=== PATIENT | female | born 1945 | race Caucasian/White ===

== ENCOUNTER → 2017-09-13 01:17 | Outpatient (CLI) | payer OTHER, SELFPAY ==
[2017-09-13 10:19] LABS: CREATININE 1.33 mg/dL (0.55-1.02); Estimated GFR 39.33 (mL/min/1.73m2)
--- NOTE | 2017-09-13 11:34 | DI.RPTCT_ITS ---
SYMPTOM/DIAGNOSIS: RUQ BD PAIN, R10.11 CT ABDOMEN AND PELVIS: CT scan of the abdomen and pelvis was performed without intravenous contrast material. Oral contrast was administered. There are no priors for comparison. The lung bases are clear Lack of IV contrast does limit evaluation of the abdominal organs. The unenhanced liver, spleen, pancreas and adrenal glands are unremarkable. The patient is status post cholecystectomy. No biliary ductal dilatation is present. The kidneys show no evidence of nephrolithiasis or hydronephrosis. The urinary bladder is intact. The patient appears to be status post hysterectomy. There is atherosclerosis of the abdominal aorta but no aneurysmal dilatation is seen. No significant abdominal or pelvic adenopathy, ascites or pneumoperitoneum is present. The bowel shows no evidence of obstruction or inflammation. There is a normal retrocecal appendix present. Incidental note is made of a small duodenal diverticulum adjacent to the pancreatic head. Degenerative changes are seen in the spine. Note is made of a small hiatal hernia. IMPRESSION: No evidence of an acute abdomen. 2. Incidental findings in the abdomen and pelvis as described above.
== END ==
PROVIDERS: PCP Nurse Practitioner Family; Visit Provider Physician Assistant Medical
DX: R10.11 Right upper quadrant pain (principal); K44.9 Diaphragmatic hernia without obstruction or gangrene; K57.10 Diverticulosis of small intestine without perforation or abscess without bleeding; Z90.49 Acquired absence of other specified parts of digestive tract; Z13.89 Encounter for screening for other disorder
CPT/HCPCS: 36415; 74176; 82565

== ENCOUNTER → 2017-09-22 12:10 | Outpatient (REF) | payer OTHER, SELFPAY ==
[2017-09-22 21:03] LABS: BUN 18 mg/dL (7-18); CREATININE 1.18 mg/dL (0.55-1.02); Calcium 9.2 mg/dL (8.5-10.1); Chloride 98 mmol/L (98-107); Estimated GFR 45.15 (mL/min/1.73m2); Glucose 227 mg/dL (70-100); Potassium 3.8 mmol/L (3.5-5.1); Sodium 136 mmol/L (136-145)
== END ==
LOC: NCHCN 12:10
PROVIDERS: PCP Nurse Practitioner Family; Visit Provider Physician Assistant Medical
DX: I10 Essential (primary) hypertension (principal)
CPT/HCPCS: 80048

== ENCOUNTER 2017-10-13 21:22 | Emergency (ER) | payer OTHER, SELFPAY ==
[2017-10-13 21:27] VITALS: BP 180/79; PULSE 87; RESP 16; TEMP 36.4; O2SAT 97
--- NOTE | 2017-10-13 21:54 | DI.RAD_ITS ---
SYMPTOMS/DIAGNOSIS: FALL, LT MID FOOT PAIN AND LATERAL MALLEOLUS PAIN LEFT ANKLE: Heel spurs are seen. There is no evidence of fracture or ankle mortise widening. IMPRESSION: No acute abnormality. LEFT FOOT: No fracture or dislocation is seen. There are mild degenerative changes at the first MTP joint. Heel spurs are seen. IMPRESSION: No acute abnormality.
--- NOTE | 2017-10-13 23:22 | DI.VRAD_ITS ---
EXAM: XR Left Ankle Complete, 3 or More Views CLINICAL HISTORY: 72 years old, female; Signs and symptoms; Other: Fall, left mid foot pain and lateral mall pain TECHNIQUE: Frontal, lateral and oblique views of the left ankle. COMPARISON: No relevant prior studies available. FINDINGS: Bones/joints: Noninflamed enthesophyte seen within the region of the Achilles tendon.There is a noninflamed plantar enthesophyte. No evidence of fracture. No evidence dislocation. Soft tissues: Soft tissue swelling seen within the lateral greater than medial aspect of the distal left ankle proximal foot. IMPRESSION: Soft tissue swelling seen within the lateral greater than medial aspect of the distal left ankle proximal left foot. Dictated and Authenticated by: Lalo Dowling MD. Ordering:BRADEN ADHIKARI MD
--- NOTE | 2017-10-13 23:25 | DI.VRAD_ITS ---
EXAM: XR Left Foot Complete, 3 or More Views CLINICAL HISTORY: 72 years old, female; Signs and symptoms; Other: Fall, left mid foot pain TECHNIQUE: Frontal, lateral and oblique views of the left foot. COMPARISON: No relevant prior studies available. FINDINGS: Bones/joints: No evidence of fracture. No evidence dislocation. Bone mineralization is age-appropriate. The joint spaces are adequately preserved; no significant degenerative narrowing and no bony erosion seen. Soft tissues: There is lateral greater than medial soft tissue swelling of the proximal left foot. No radiopaque foreign body present. No radiopaque foreign body identified. IMPRESSION: No acute osseous abnormality. Soft tissue swelling only. Dictated and Authenticated by: Lalo Dowling MD. Ordering:BRADEN ADHIKARI MD
[2017-10-14] MEDS: Acetaminophen 500 MG TAB 1000 MG PO (00:15)
[2017-10-14] MEDS: Ibuprofen 800 MG TAB PO (00:16)
[2017-10-14 00:30] VITALS: BP 180/79; PULSE 87; RESP 16; TEMP 36.4; O2SAT 97
--- NOTE | 2017-10-14 03:14 | ED.GENADUL_ITS ---
Discharge Plan Discharge Details Chief Complaint: Orthopedic Clinical Impression: Sprain of foot, left Reason For Visit: left foot pain Primary Care Provider: Alanna Stratton ED Provider: Ezequiel Salazar Disposition Patient Disposition: HOME Condition: Good Home Meds and New Rx's Prescriptions: New acetaminophen [Mapap Extra Strength] 500 MG tablet 1,000 mg PO Q6H 5 Days Qty: 60 RF: 0 ibuprofen [Motrin IB] 200 MG tablet 600 mg PO Q6H 5 Days Qty: 30 RF: 0 No Action lisinopril 10 MG tablet 5 mg PO DAILY AM RF: 0 aspirin [Obinna Chewable Aspirin] 81 MG tablet,chewable 81 mg PO QAM RF: 0 fexofenadine [Krystle Allergy] 180 MG tablet RF: 0 levothyroxine 25 MCG tablet 25 mcg PO QAM RF: 0 hydrochlorothiazide 50 MG tablet 50 mg PO QAM RF: 0 vitamin D3-vitamin K2 [D3 + K2 DOTS] 1 EACH tablet,disintegrating RF: 0 meclizine [Antivert] 25 MG tablet 25 mg PO BID PRN PRNQty: 20 RF: 0 Discharge Instructions Instructions: RICE Therapy (ED), Swollen Joint (ED) Additional Instructions: Please take Tylenol and Motrin as directed. Please take the Motrin with food. Please follow-up with your primary care provider soon as possible for reassessment. Please continue to use ice as much as possible on your foot, keep it elevated, and keep it in the boot. If you notice any worsening of your symptoms, or any new symptoms such as vomiting, diarrhea, fever, chills, shortness of breath, chest pain, numbness, weakness, or fainting , please return immediately to the emergency department for reevaluation. Please follow up with your primary care provider as soon as possible for reassessment and reevaluation. As always, it was a pleasure participating in your medical care today. Medical Decision Making MDM Narrative Medical decision making narrative: This is a 72-year-old female who presents for evaluation of left ankle pain. She is walking down her stairs when she slipped on fluids secondary to the neighbor spilling it on the stairs. She twisted her left ankle and foot. She has been able to walk on it with a mild limp, and has been taking aspirin and using ice for this. It occurred earlier this evening. She presents today for further evaluation of the ankle and foot. Physical exam demonstrates tenderness over the midfoot, as well as mild tenderness in the lateral ankle. Patient refused any IM morphine, but did request Tylenol and Motrin. X-rays were performed and per virtual radiology there is no acute osseous abnormality, soft tissue swelling only for the left foot, as well as soft tissue swelling seen within the lateral greater the medial aspect of the distal left ankle proximal left foot. The patient was given a Aircast boot, and she tolerated this well with a cane. She did not want crutches. With a negative x-ray per virtual radiology and good tolerance of the pain with a walking boot and cane and feels she is safe for discharge home with close follow-up with her PCP. We discussed red flags which return as well as the importance of close follow-up and she understands. I have extensively reviewed the treatment plan and discharge instructions with the patient. I have addressed all patient concerns at this time. The patient was made aware of what symptoms to monitor for that would warrant a return to the emergency department. Discussed the plan with the patient, they demonstrate verbal understanding and agreement with our assessment and plan at this time. HPI - General Adult General Date/Time Provider Initiated Documentation: 10/13/17 21:54 . HPI Narrative: This is a 72-year-old female who presents for evaluation of left ankle pain. Patient states that she is walking down her stairs, and her neighbor got sewage all over steps. Because of this she slipped and she had a roll of her left foot/ankle. She applied ice, and took 3 aspirin at home. She was able to walk but did have a limp because of this. Pain is made worse with movement. She denies hearing any pop or crack. She denies any previous surgeries in the area. She denies any numbness, tingling, weakness. She denies any blood thinner use. She does take daily aspirin. She did not fall and hit her head. She denies any pain in her knee or hips. She denies any other complaints at this time. She denies any IV or illicit drug use. She denies any pertinent family history Related Data Home Medications Medication Instructions Recorded Confirmed aspirin [Obinna Chewable Aspirin] 81 mg PO QAM 07/27/16 10/13/17 fexofenadine [Krystle Allergy] 07/27/16 hydrochlorothiazide 50 mg PO QAM 07/27/16 10/13/17 levothyroxine 25 mcg PO QAM 07/27/16 10/13/17 lisinopril 5 mg PO DAILY AM 07/27/16 10/13/17 vitamin D3-vitamin K2 [D3 + K2 07/27/16 DOTS] Previous Rx's Medication Instructions Recorded meclizine [Antivert] 25 mg PO BID PRN PRN #20 tab 07/27/16 acetaminophen [Mapap Extra 1,000 mg PO Q6H 5 Days #60 tab 10/14/17 Strength] ibuprofen [Motrin Ib] 600 mg PO Q6H 5 Days #30 tab 10/14/17 Allergies Allergy/AdvReac Type Severity Reaction Status Date / Time erythromycin base Allergy Unknown Unverified 07/27/16 16:04 [Erythromycin Base] gluten AdvReac ABD PAIN-N Unverified 07/27/16 16:04 AND V SEAFOOD Allergy Intermediate Uncoded 07/27/16 16:04 General Stated Complaint: Orthopedic JONNY: 4 Review of Systems Review of Systems 10 point review of systems was performed, pertinent positives and negatives are noted in the history of present illness. [facility] Social History Smoking/Tobacco Use Status: Never Exam Narrative Exam Narrative: 1.Const: Well-nourished, Well-developed, appearing stated age 2.Eyes: PERRL, no conjunctival injection, and symmetrical lids. 3.ENT: Atraumatic external nose and ears. Moist MM. Neck: Symmetric, trachea midline, No thyromegaly. 4.CVS: +S1/S2, No murmurs or gallops. Peripheral pulses 2+ and equal in all extremities. Brisk capillary refill in all extremities. 5.RESP: Unlabored respiratory effort. Clear to auscultation bilaterally. No wheezes rales or rhonchi 6.GI: Soft, Nontender/Nondistended, No hepatosplenomegaly. No guarding or rebound. 7.MSK: Normocephalic/Atraumatic, Extremities w/o deformity. No cyanosis or clubbing, normal movement of the patient's hips, knees, back and upper extremities bilaterally. Patient's right lower extremity is normal. Left lower extremity demonstrates no significant swelling. There is mild reproducible tenderness over the midfoot. No joint laxity for the left ankle. Brisk capillary refill, normal dorsalis pedis pulse and posterior tibial pulse. Mild tenderness over the lateral malleoli of the left ankle. No other significant abnormality or deformity. 8.Skin: Warm, Dry. No rashes or lesions. 9.Neuro: lodging manager II-XII grossly intact. Sensation grossly intact, no focal neurologic deficits. 10.Psych: (AAO) x3. Appropriate mood and affect Course Vital Signs Temperature 36.4 C L 10/13/17 21: Pulse 87 10/13/17 21:27 Respiratory Rate 16 10/13/17 21:27 Blood Pressure 180/79 H 10/13/17 21:27 Pulse Oximetry 97 10/13/17 21:27 Temperature 36.4 C L 10/13/17 21:27 Pulse 87 10/13/17 21:27 Respiratory Rate 16 10/13/17 21:27 Blood Pressure 180/79 H 10/13/17 21:27 Pulse Oximetry 97 10/13/17 21:27
== END 2017-10-14 00:45 | disposition home or self-care (01) ==
LOC: ER 10-14 00:50
PROVIDERS: Emergency Provider Student in an Organized Health Care Education/Training Program; PCP Physician Assistant Medical
DX: S93.602A Unspecified sprain of left foot, initial encounter (principal); M25.572 Pain in left ankle and joints of left foot; W10.8XXA Fall (on) (from) other stairs and steps, initial encounter; I10 Essential (primary) hypertension
CPT/HCPCS: 29515; 96372; 99284; 73610; 73630; 99283; J2270; L4361

== ENCOUNTER 2017-11-17 08:59 | Outpatient (REF) | payer OTHER, SELFPAY ==
[2017-11-17 20:18] LABS: Anion Gap 9.4 mmol/L (3-11); BUN 23 mg/dL (7-18); CO2 27.6 mmol/L (21.0-32.0); CREATININE 1.04 mg/dL (0.55-1.02); Calcium 8.6 mg/dL (8.5-10.1); Chloride 103 mmol/L (98-107); Estimated GFR 52.24 (mL/min/1.73m2); Glucose 137 mg/dL (70-100); Potassium 4.6 mmol/L (3.5-5.1); Sodium 140 mmol/L (136-145)
== END 2017-11-17 09:19 ==
LOC: NCHCN 08:59
PROVIDERS: PCP Physician Assistant Medical; Visit Provider Physician Assistant Medical
DX: R94.4 Abnormal results of kidney function studies (principal); I10 Essential (primary) hypertension
CPT/HCPCS: 80048

== ENCOUNTER 2018-03-23 11:19 | Outpatient (REF) | payer OTHER, SELFPAY ==
[2018-03-23 20:13] LABS: Hemoglobin A1C 6.7 % (4.5-6.2)
[2018-03-23 20:15] LABS: Anion Gap 12.1 mmol/L (3-11); BUN 23 mg/dL (7-18); CO2 26.9 mmol/L (21.0-32.0); CREATININE 1.22 mg/dL (0.55-1.02); Calcium 9.2 mg/dL (8.5-10.1); Chloride 101 mmol/L (98-107); Cholesterol 212 mg/dL (50-200); Estimated GFR 43.45 (mL/min/1.73m2); Glucose 183 mg/dL (70-100); HDL Cholesterol 48 mg/dL (40-60); LDL CHOLESTEROL 139 mg/dL (<100); Potassium 4.2 mmol/L (3.5-5.1); Sodium 140 mmol/L (136-145); TSH (W/Ref FT4) 2.26 uIU/mL (0.358-3.74); Triglyceride 173 mg/dL (30-150)
== END 2018-03-23 11:39 ==
LOC: NCHCN 11:19
PROVIDERS: PCP Physician Assistant Medical; Visit Provider Nurse Practitioner Family
DX: E11.9 Type 2 diabetes mellitus without complications (principal); E03.9 Hypothyroidism, unspecified; I10 Essential (primary) hypertension
CPT/HCPCS: 80048; 80061; 83721; 83036; 84443

== ENCOUNTER 2018-04-25 15:31 | Outpatient (REF) | payer OTHER, SELFPAY ==
[2018-04-25 22:12] LABS: ALT 66 U/L (12-78); AST 31 U/L (15-37); Albumin 3.7 g/dL (3.4-5.0); Alkaline Phosphatase 80 U/L (46-116); Anion Gap 8.1 mmol/L (3-11); BUN 22 mg/dL (7-18); Bilirubin, Direct 0.12 mg/dL (0.00-0.20); Bilirubin, Total 0.4 mg/dL (0.2-1.0); CO2 27.9 mmol/L (21.0-32.0); CREATININE 1.13 mg/dL (0.55-1.02); Calcium 9.5 mg/dL (8.5-10.1); Chloride 100 mmol/L (98-107); Estimated GFR 47.47 (mL/min/1.73m2); Glucose 115 mg/dL (70-100); Potassium 4.2 mmol/L (3.5-5.1); Sodium 136 mmol/L (136-145); Total Protein 7.1 g/dL (6.4-8.2)
== END 2018-04-25 15:51 ==
LOC: NCHCN 15:31
PROVIDERS: PCP Physician Assistant Medical; Visit Provider Nurse Practitioner Family
DX: N18.3 Chronic kidney disease, stage 3 (moderate) (principal)
CPT/HCPCS: 80048; 80076

== ENCOUNTER 2019-01-12 16:33 | Outpatient (REF) | payer OTHER, SELFPAY | END 2019-01-12 16:53 | LOC: NCHCN 16:33 | PROVIDERS: PCP Physician Assistant Medical; Visit Provider Nurse Practitioner Family | DX: N89.8 Other specified noninflammatory disorders of vagina (principal) | CPT/HCPCS: 87480; 87510; 87660 ==

== ENCOUNTER 2019-01-17 01:14 | Outpatient (CLI) | payer OTHER, SELFPAY ==
--- NOTE | 2019-01-17 13:12 | DI.US_ITS ---
EXAM: US PELVIS TRANSVAGINAL CLINICAL HISTORY: BLOODY VAGINAL DISCHARGE, N89.8, H/O HYSTERECTOMY, 1 OVARY, RLQ TENDERNESS, ?LESIO N/INFECTION, VAGINAL SWAB PATHOLOGY COLLECTED TECHNIQUE: Ultrasound performed using standard protocol. COMPARISON: ABD PELVIS WO CONTRAST from 09/13/2017 FINDINGS: Transabdominal and transvaginal exams were performed. The transabdominal images are limited by patien t's body habitus and lack of bladder distention. Fluid is seen within the cervical canal. Patient is status post hysterectomy and right oophorectomy. The left ovary was not visualized. No free fluid is seen. The kidneys are unremarkable. IMPRESSION: Fluid within the endocervical canal. No mass is visible. The left ovary was not visualized.
== END 2019-01-17 01:34 ==
PROVIDERS: PCP Nurse Practitioner Family; Visit Provider Nurse Practitioner Family
DX: N89.8 Other specified noninflammatory disorders of vagina (principal); R10.813 Right lower quadrant abdominal tenderness; Z90.710 Acquired absence of both cervix and uterus; Z90.721 Acquired absence of ovaries, unilateral
CPT/HCPCS: 76830; 76856

== ENCOUNTER 2019-07-19 18:24 | Outpatient (REF) | payer OTHER, SELFPAY ==
[2019-07-19 21:10] LABS: Hemoglobin A1C 8.7 % (3.8-5.6)
[2019-07-19 21:19] LABS: Anion Gap 10.9 mmol/L (3-11); BUN 26 mg/dL (7-18); CO2 27.1 mmol/L (21.0-32.0); CREATININE 1.38 mg/dL (0.55-1.02); Calculated LDL 134 mg/dL (<100); Chloride 101 mmol/L (98-107); Cholesterol 214 mg/dL (<200); Estimated GFR 37.58 (mL/min/1.73m2); Glucose 216 mg/dL (74-106); HDL Cholesterol 55 mg/dL (40-60); Potassium 4.4 mmol/L (3.5-5.1); Sodium 139 mmol/L (136-145); TSH 2.07 uIU/mL (0.36-3.74); Triglyceride 125 mg/dL (<150)
== END 2019-07-19 18:44 ==
LOC: NCHCN 18:24
PROVIDERS: PCP Nurse Practitioner Family; Visit Provider Nurse Practitioner Family
DX: E03.9 Hypothyroidism, unspecified (principal); I10 Essential (primary) hypertension; E11.9 Type 2 diabetes mellitus without complications
CPT/HCPCS: 80048; 80061; 83036; 84443

== ENCOUNTER 2019-08-10 02:33 | Outpatient (CLI) | payer OTHER, SELFPAY | END 2019-08-10 02:53 | PROVIDERS: PCP Nurse Practitioner Family; Visit Provider Nurse Practitioner Family | DX: I49.9 Cardiac arrhythmia, unspecified (principal) | CPT/HCPCS: 93225 ==

== ENCOUNTER 2019-08-14 10:14 | Outpatient (CLI) | payer OTHER, SELFPAY ==
--- NOTE | 2019-08-14 13:43 | W.HOLTRPT ---
Date of service: 08/14/19 Time of Service: 13:43 Holter Monitor Report Holter Monitor Note: This was a 24-hour Holter monitor Rhythm throughout was sinus. Average heart rate was 70. Minimum heart rate was 52 and maximum 147. There were very rare ventricular ectopic beats. There were no couplets, triplets or nonsustained ventricular tachycardia There were no significant supraventricular dysrhythmias There was no atrial fibrillation There were no pauses greater than 2 seconds
== END 2019-08-14 10:34 ==
PROVIDERS: PCP Nurse Practitioner Family; Visit Provider Nurse Practitioner Family
DX: I49.9 Cardiac arrhythmia, unspecified (principal); I49.3 Ventricular premature depolarization
CPT/HCPCS: 93227; 93226

== ENCOUNTER 2019-08-17 10:40 | Outpatient (REF) | payer OTHER, SELFPAY ==
[2019-08-17 19:21] LABS: Anion Gap 9.4 mmol/L (3-11); BUN 17 mg/dL (7-18); CO2 26.6 mmol/L (21.0-32.0); CREATININE 1.08 mg/dL (0.55-1.02); Calcium 9.4 mg/dL (8.5-10.1); Chloride 98 mmol/L (98-107); Estimated GFR 49.87 (mL/min/1.73m2); Glucose 142 mg/dL (74-106); Potassium 4.5 mmol/L (3.5-5.1); Sodium 134 mmol/L (136-145)
== END 2019-08-17 11:00 ==
LOC: NCHCN 10:40
PROVIDERS: PCP Nurse Practitioner Family; Visit Provider Nurse Practitioner Family
DX: E11.9 Type 2 diabetes mellitus without complications (principal)
CPT/HCPCS: 80048

== ENCOUNTER 2020-08-13 09:02 | Outpatient (REF) | payer OTHER, SELFPAY ==
[2020-08-13 22:33] LABS: Anion Gap 10.3 mmol/L (3-11); BUN 18 mg/dL (7-18); CO2 26.7 mmol/L (21.0-32.0); CREATININE 1.2 mg/dL (0.55-1.02); Calcium 9.1 mg/dL (8.5-10.1); Calculated LDL 112 mg/dL (<100); Chloride 100 mmol/L (98-107); Cholesterol 204 mg/dL (<200); Estimated GFR 44.04 (mL/min/1.73m2); Glucose 120 mg/dL (74-106); HDL Cholesterol 54 mg/dL (40-60); Sodium 137 mmol/L (136-145); TSH 2.27 uIU/mL (0.36-3.74); Triglyceride 192 mg/dL (<150)
[2020-08-13 22:51] LABS: FREE T4 1.11 ng/dL (0.76-1.46)
== END 2020-08-13 09:03 | disposition home or self-care (01) ==
LOC: NCHCN 09:02
PROVIDERS: PCP Nurse Practitioner Family; Visit Provider Nurse Practitioner Family
DX: E03.9 Hypothyroidism, unspecified (principal); I10 Essential (primary) hypertension; E11.9 Type 2 diabetes mellitus without complications
CPT/HCPCS: 80048; 80061; 84439; 84443

== ENCOUNTER 2021-08-05 14:37 | Outpatient (REF) | payer MEDICARE, SELFPAY ==
[2021-08-05 15:42] LABS: Hemoglobin A1C 6.3 % (<5.7)
[2021-08-05 16:31] LABS: Anion Gap 8.9 mmol/L (3-11); BUN 22 mg/dL (7-18); CO2 26.1 mmol/L (21.0-32.0); CREATININE 1.1 mg/dL (0.55-1.02); Calcium 8.8 mg/dL (8.5-10.1); Calculated LDL 127 mg/dL (<100); Chloride 100 mmol/L (98-107); Cholesterol 217 mg/dL (<200); Estimated GFR 48.55 (mL/min/1.73m2); Glucose 133 mg/dL (74-106); HDL Cholesterol 57 mg/dL (40-60); Potassium 4.3 mmol/L (3.5-5.1); Sodium 135 mmol/L (136-145); TSH (W/Ref FT4) 1.95 uIU/mL (0.36-3.74); Triglyceride 165 mg/dL (<150)
[2021-08-05 17:08] LABS: FREE T4 1.04 ng/dL (0.76-1.46)
== END 2021-08-05 14:38 | disposition home or self-care (01) ==
LOC: NCHCN 14:37
PROVIDERS: PCP Nurse Practitioner Family; Visit Provider Nurse Practitioner Family
DX: E03.9 Hypothyroidism, unspecified (principal); E11.9 Type 2 diabetes mellitus without complications; E78.1 Pure hyperglyceridemia; I10 Essential (primary) hypertension
CPT/HCPCS: 80048; 80061; 83036; 84439; 84443

== ENCOUNTER 2022-08-17 12:20 | Outpatient (REF) | payer MEDICARE, SELFPAY ==
[2022-08-17 17:56] LABS: Anion Gap 8.2 mmol/L (3-11); BUN 25 mg/dL (7-18); CO2 26.8 mmol/L (21.0-32.0); CREATININE 1.1 mg/dL (0.55-1.02); Calculated LDL 112 mg/dL (<100); Chloride 98 mmol/L (98-107); Cholesterol 192 mg/dL (<200); Glucose 130 mg/dL (74-106); HDL Cholesterol 51 mg/dL (40-60); Potassium 4.4 mmol/L (3.5-5.1); Sodium 133 mmol/L (136-145); TSH (W/Ref FT4) 1.61 uIU/mL (0.36-3.74); Triglyceride 147 mg/dL (<150)
[2022-08-17 18:42] LABS: Hemoglobin A1C 6.8 % (<5.7)
== END 2022-08-17 12:21 | disposition home or self-care (01) ==
LOC: NCHCN 12:20
PROVIDERS: PCP Nurse Practitioner Family; Visit Provider Nurse Practitioner Family
DX: E11.9 Type 2 diabetes mellitus without complications (principal); E03.9 Hypothyroidism, unspecified; I10 Essential (primary) hypertension
CPT/HCPCS: 80048; 80061; 83036; 84443

== ENCOUNTER 2022-09-03 19:41 | Outpatient (REF) | payer MEDICARE, SELFPAY ==
[2022-09-03 19:05] LABS: Sodium 136 mmol/L (136-145)
== END 2022-09-03 19:42 | disposition home or self-care (01) ==
LOC: NCHCN 19:41
PROVIDERS: PCP Nurse Practitioner Family; Visit Provider Nurse Practitioner Family
DX: I10 Essential (primary) hypertension (principal)
CPT/HCPCS: 84295

== ENCOUNTER 2023-03-01 15:01 | Outpatient (REF) | payer MEDICARE, SELFPAY | END 2023-03-01 15:02 | disposition home or self-care (01) | LOC: NCHCN 15:01 | PROVIDERS: PCP Nurse Practitioner Family; Visit Provider Nurse Practitioner Family | DX: N89.8 Other specified noninflammatory disorders of vagina (principal) | CPT/HCPCS: 87480; 87510; 87660 ==

== ENCOUNTER 2023-03-11 08:55 | Outpatient (REF) | payer MEDICARE, SELFPAY ==
[2023-03-11 17:02] LABS: Anion Gap 11.6 mmol/L (3-11); BUN 22 mg/dL (7-18); CO2 23.4 mmol/L (21.0-32.0); CREATININE 1.3 mg/dL (0.55-1.02); Calcium 9.3 mg/dL (8.5-10.1); Chloride 103 mmol/L (98-107); Estimated GFR 42.62 (mL/min/1.73m2); Glucose 230 mg/dL (74-106); Potassium 4.2 mmol/L (3.5-5.1); Sodium 138 mmol/L (136-145)
== END 2023-03-11 08:56 | disposition home or self-care (01) ==
LOC: NCHCN 08:55
PROVIDERS: PCP Nurse Practitioner Family; Visit Provider Nurse Practitioner Family
DX: N18.30 Chronic kidney disease, stage 3 unspecified (principal)
CPT/HCPCS: 80048

== ENCOUNTER 2024-01-19 12:53 | Outpatient (REF) | payer MEDICARE, SELFPAY ==
[2024-01-19 15:11] LABS: Abs Immature Grans 0.02 10^3/uL (0.0-0.06); Absolute Basophil Count 0.05 10^3/uL (0.0-0.2); Absolute Eosinophil Count 0.22 10^3/uL (0.0-0.7); Absolute Lymphocyte Count 1.66 10^3/uL (1.2-3.4); Absolute Monocyte Count 0.67 10^3/uL (0.1-0.8); Absolute Neutrophil Count 3.34 10^3/uL (1.2-6.7); Basophils % 0.8 %; Eosinophils % 3.7 %; HCT 38.8 % (36.0-46.0); HGB 12.9 g/dL (11.2-15.7); Immature Grans % 0.3 %; Lymphocytes % 27.9 %; MCH 30.1 pg (27.0-33.0); MCHC 33.2 % (32.0-36.0); MCV 91 fL (80-95); MPV 12.6 fL (8.0-11.0); Monocytes % 11.2 %; Neutrophils % 56.1 %; Platelet Count 205 10^3/uL (130-400); RBC 4.28 10^6/uL (3.93-5.22); RDW 11.8 % (11.7-14.6); RDW-SD 38.9 fL; WBC 5.96 10^3/uL (4.4-10.8)
[2024-01-19 15:47] LABS: ALT 31 U/L (14-59); AST 14 U/L (15-37); Albumin 3.8 g/dL (3.4-5.0); Alkaline Phosphatase 85 U/L (46-116); Anion Gap 7.4 mmol/L (3-11); BUN 23 mg/dL (7-18); Bilirubin, Total 0.33 mg/dL (0.2-1.0); CO2 29.6 mmol/L (21.0-32.0); CREATININE 1.2 mg/dL (0.55-1.02); Calcium 9.3 mg/dL (8.5-10.1); Calculated LDL 117 mg/dL (<100); Chloride 104 mmol/L (98-107); Cholesterol 216 mg/dL (<200); Estimated GFR 46.62 (mL/min/1.73m2); Glucose 144 mg/dL (74-106); HDL Cholesterol 56 mg/dL (40-60); Potassium 4.5 mmol/L (3.5-5.1); Sodium 141 mmol/L (136-145); TSH (W/Ref FT4) 2.21 uIU/mL (0.36-3.74); Total Protein 7.3 g/dL (6.4-8.2); Triglyceride 218 mg/dL (<150)
[2024-01-19 15:50] LABS: COMMENT (LAB VIEW ONLY) 92.95 mg/dL; Microalb ug/mg Crea 4.4 ug/mg Cr
== END 2024-01-19 12:54 | disposition home or self-care (01) ==
LOC: NCHCN 12:53
PROVIDERS: PCP Physician Assistant Medical; Visit Provider Family Medicine
DX: E11.9 Type 2 diabetes mellitus without complications (principal); E03.9 Hypothyroidism, unspecified
CPT/HCPCS: 80053; 80061; 82043; 82570; 84443; 85025

== ENCOUNTER 2024-08-22 16:48 | Outpatient (REF) | payer MEDICARE, SELFPAY ==
[2024-08-22 16:36] LABS: Hemoglobin A1C 7.1 % (<5.7)
[2024-08-22 16:48] LABS: Anion Gap 9.3 mmol/L (3-11); BUN 21 mg/dL (7-18); CO2 25.7 mmol/L (21.0-32.0); Calcium 9.0 mg/dL (8.5-10.1); Calculated LDL 107 mg/dL (<100); Chloride 102 mmol/L (98-107); Cholesterol 197 mg/dL (<200); Estimated GFR 46.33 (mL/min/1.73m2); Glucose 156 mg/dL (74-106); HDL Cholesterol 50 mg/dL (>or=50); Potassium 4.8 mmol/L (3.5-5.1); Sodium 137 mmol/L (136-145); TSH 1.67 uIU/mL (0.36-3.74); Triglyceride 203 mg/dL (<150)
== END 2024-08-22 16:49 | disposition home or self-care (01) ==
LOC: NCHCN 16:48
PROVIDERS: PCP Physician Assistant Medical; Visit Provider Family Medicine
DX: N18.30 Chronic kidney disease, stage 3 unspecified (principal); E03.9 Hypothyroidism, unspecified; E78.5 Hyperlipidemia, unspecified; E11.9 Type 2 diabetes mellitus without complications
CPT/HCPCS: 80048; 80061; 83036; 84439; 84443